=== PATIENT | male | born 1945 | race Caucasian/White ===

== ENCOUNTER 2022-08-05 11:23 | Day surgery (SDC) | payer OTHER ==
[~2022-08-05] VITALS: Ht 175.3 cm; Wt 79.4 kg
[~2022-08-05 11:23] MED LIST: ACET325 PO; ASPI325 PO; ASPI81CH PO; B Complete1 EACH PO; B-1100 MG PO; BISA5EC PO; CARV6.25 PO; CHOL10002; CIPR500 PO; CLOP75 PO; DOCU100 PO; EZET10 PO; FENO145 PO; FISH1000 PO; FOLI1 PO; GAVILAX17 GM PO; HYDCHL25 PO; LIDO700A20 TOP; LISI20 PO; METF500 PO; METR500 PO; MICROZIDE12.5 MG; Miacalcin I200 IU/ML; NIAC500ER PO; NITR.4SL SL; Norco 7.5-3251 EACH PO; ONDA4ODT PO; OXYACE7.5T PO; Oyster Shell C500 MG PO; SPIRIVA
[2022-08-05] MEDS ORDERED: FISH OIL 1,2001 EAC7 (12:09)
== END 2022-08-05 13:40 | disposition home or self-care (01) ==
LOC: ORSCSDS 11:23
PROVIDERS: Surgery
PROC: 0DBN8ZX Excision of Sigmoid Colon, Via Natural or Artificial Opening Endoscopic, Diagnostic (ICD-10-PCS; principal; 2022-08-05 13:00)
DX: Z12.11 Encounter for screening for malignant neoplasm of colon (principal); Z86.010 Personal history of colon polyps; K52.9 Noninfective gastroenteritis and colitis, unspecified; K63.5 Polyp of colon; J44.9 Chronic obstructive pulmonary disease, unspecified; I25.10 Atherosclerotic heart disease of native coronary artery without angina pectoris; E11.9 Type 2 diabetes mellitus without complications; I71.40 Abdominal aortic aneurysm, without rupture, unspecified; E78.5 Hyperlipidemia, unspecified; I10 Essential (primary) hypertension; Z87.891 Personal history of nicotine dependence; Z79.82 Long term (current) use of aspirin
CPT/HCPCS: 82947; 88305; J2704; J7120

== ENCOUNTER 2022-12-29 19:06 | Emergency (ER) | payer OTHER ==
[~2022-12-29] VITALS: Ht 175.3 cm; Wt 81.2 kg
[~2022-12-29 19:06] MED LIST changes: +FISH OIL 1,2001 EAC7
[2022-12-29 20:28] LABS: BASOPHILS ABSOLUTE AUTO 0.02 K/mm3 (0.00-0.23); BASOPHILS PERCENT AUTO 0 % (0-2); EOSINOPHILS ABSOLUTE AUTO 0.04 K/mm3 (0.00-0.68); EOSINOPHILS PERCENT AUTO 1 % (0-6); Hemoglobin 12.8 g/dL (13.5-17.5); IMMATURE GRAN ABSOLUTE AUTO 0.02 K/mm3 (0.00-0.10); IMMATURE GRAN PERCENT AUTO 0 % (0-1); LYMPHOCYTES PERCENT AUTO 21 % (21-46); MONOCYTES ABSOLUTE AUTO 0.59 K/mm3 (0.16-1.47); MONOCYTES PERCENT AUTO 13 % (4-13); Mean Corpuscular HGB 36.2 pg (26.0-34.0); Mean Corpuscular HGB Conc 35.6 g/dL (31.5-36.5); Mean Corpuscular Volume 102 fL (80-100); Mean Platelet Volume 8.8 fL (9.1-12.4); NEUTROPHILS ABSOLUTE AUTO 3.06 K/mm3 (1.96-9.15); NEUTROPHILS PERCENT AUTO 65 % (41-73); Platelet Count 138 K/mm3 (150-400); RDW Coefficient Variation 12.6 % (11.7-14.2); Red Blood Cell Count 3.54 M/mm3 (4.30-5.90); White Blood Cell Count 4.73 K/mm3 (4.00-11.30)
[2022-12-29 21:02] LABS: Albumin, Blood 3.5 g/dL (3.4-5.0); Albumin/Globulin Ratio 1.1 (0.8-1.8); Bilirubin, Total 0.5 mg/dL (0.1-1.0); Bun/Creatinine Ratio 17.8 (12.0-20.0); Calcium, Blood 8.9 mg/dL (8.5-10.1); Creatinine, Blood 1.69 mg/dL (0.60-1.20); Globulin, Blood 3.3 g/dL (2.2-4.0); Potassium, Blood 3.8 mmol/L (3.5-5.5); Total Protein, Blood 6.8 g/dL (6.4-8.2)
[2022-12-29 21:15] VITALS: BP 127/79
[2022-12-29] MEDS ORDERED: EPIPEN0.3 MG/0.3 IM (21:19)
== END 2022-12-29 21:29 | disposition home or self-care (01) ==
LOC: ER 19:06
PROVIDERS: Emergency Medicine
DX: T63.441A Toxic effect of venom of bees, accidental (unintentional), initial encounter (principal); I12.9 Hypertensive chronic kidney disease with stage 1 through stage 4 chronic kidney disease, or unspecified chronic kidney disease; E11.22 Type 2 diabetes mellitus with diabetic chronic kidney disease; N18.9 Chronic kidney disease, unspecified; J44.9 Chronic obstructive pulmonary disease, unspecified; I25.10 Atherosclerotic heart disease of native coronary artery without angina pectoris; Z91.030 Bee allergy status; Z88.5 Allergy status to narcotic agent; Z88.8 Allergy status to other drugs, medicaments and biological substances; Z91.018 Allergy to other foods; Z79.899 Other long term (current) drug therapy; Z79.82 Long term (current) use of aspirin; Z95.5 Presence of coronary angioplasty implant and graft; Z87.891 Personal history of nicotine dependence
CPT/HCPCS: 71045; 80053; 84484; 85025; 93005; 93010; 94640; 94664; 96361; 96374; 96375; 99283-25; A9270; J0171; J1200; J2930; J7030; J7060

== ENCOUNTER 2024-08-15 06:59 | Day surgery (SDC) | payer OTHER ==
[2024-08-15] VITALS (15 sets, daily range): BP systolic 87–138; BP diastolic 55–89
[~2024-08-15] VITALS: Ht 175.3 cm; Wt 78.1 kg
[~2024-08-15 06:59] MED LIST changes: +ALBU90OI INH; +CeFAZolin Sodium 2,000 MG VIAL ONE; +CeFAZolin Sodium 2,000 MG in NS 100 ML IV SCH; +Chlorhexidine Mouth Care 15 ML UDC MT SCH; +EPIPEN0.3 MG/0.3 IM; +FISH OIL 1,0001 EA10 PO; +Lactated Ringer's 1,000 ML IV SCH; +Lisinopril-Hct1 EAC4 PO; +Ropivacaine 0.5% HCl/Pf 123.125 MG,EPINEPHrine HCL 0.25 MG,Ketorolac Tromethamine 15 MG... INFIL SCH; +STIOLTO RESPIMAT4 G1 INH; +THERA-D2000 UNIT PO; +Tranexamic Acid 100 ML IV SCH
[2024-08-15] MEDS ORDERED: OxyCODONE HCL 10 MG TABCR PO SCH (07:35)
[2024-08-15] MEDS ORDERED: propofoL 80 ML IV ONE (07:44)
[2024-08-15] MEDS ORDERED: FentaNYL Citrate 50 MCG/ML 2 ML Injection ONE (07:44)
[2024-08-15] MEDS ORDERED: Lidocaine HCl 2% 20 ML MDV ONE (07:45)
[2024-08-15] MEDS ORDERED: Bupivacaine 0.5% HCl 5 MG/ML 30MLVIAL ONE (07:49)
--- NOTE | 2024-08-15 08:08 | NUR ---
Ambulatory in Day Surgery WITH STEADY GAIT. ABLE TO CHANGE INTO GOWN INDEPENDENTLY. History, Chart, Medications and Allergies reviewed before start of procedure. Pre-Op teaching done. Pt verbalizes understanding. DAUGHTER AT BEDSIDE. DENTURE CUP SENT TO OR FOR HEARING AID REMOVAL ONCE PT IS ASLEEP. ALL OTHER BELONGINGS PLACED UNDER GURN. PT REPORTS LEAVING DENTURES AT HOME.
[2024-08-15] MEDS ORDERED: HYDROmorphone HCl 0.5 MG/0.5 ML SYR IV PRN (08:35)
[2024-08-15] MEDS ORDERED: DiphenhydrAMINE HCL 25 MG Cap PO PRN (08:40)
[2024-08-15] MEDS ORDERED: FLU VACC TS2024-25(6MOS UP)/PF 45 MCG/0.5 ML SYRINGE IM PRN (08:40)
[2024-08-15] MEDS ORDERED: Lactated Ringer's 1,000 ML IV SCH (08:40)
[2024-08-15] MEDS ORDERED: Metoclopramide HCl 5MG / ML 2ML Vial IV PRN (08:40)
[2024-08-15] MEDS ORDERED: Magnesium Hydroxide Conc 10 ML UDC PO PRN (08:45)
[2024-08-15] MEDS ORDERED: OxyCODONE HCL 5 MG TAB PO PRN ×2 (08:45)
[2024-08-15] MEDS ORDERED: Ondansetron HCl 2 MG / ML 2ML Vial IV PRN (08:45)
[2024-08-15] MEDS ORDERED: Bisacodyl 10 MG Supp PR PRN (08:50)
[2024-08-15] MEDS ORDERED: Promethazine HCl 25 MG Tab PO PRN (08:50)
[2024-08-15] MEDS ORDERED: Docusate Sodium 100 MG Cap PO SCH (09:00)
[2024-08-15] MEDS ORDERED: Lisinopril 10 MG Tab PO SCH (09:09)
[2024-08-15] MEDS ORDERED: HydroCHLOROthiazide 25 mg Tab PO SCH (09:09)
[2024-08-15] MEDS ORDERED: Albuterol HFA200 ACT/6.7 GM INH INH PRN (09:10)
[2024-08-15] MEDS ORDERED: Tiotropium Bromide 2.5 MCG/ACT MIST INHAL (10 ACT/4 GM) INH SCH (09:15)
[2024-08-15] MEDS ORDERED: ePHEDrine Sulfate 50 MG/ML 1ML Injection ONE (09:16)
[2024-08-15] MEDS ORDERED: propofoL 20 ML IV ONE (10:09)
[2024-08-15] MEDS ORDERED: Insulin Regular 100 UNIT/ML 10ML Vial SC SCH (11:30)
[2024-08-15] MEDS ORDERED: Ketorolac Tromethamine 15mg Vial IV SCH (12:00)
[2024-08-15] MEDS ORDERED: OXYC5 PO (15:28)
[2024-08-15] MEDS ORDERED: ACET500 PO (15:28)
[2024-08-15] MEDS ORDERED: CeFAZolin Sodium 2,000 MG in NS 100 ML IV SCH (16:00)
--- NOTE | 2024-08-15 16:35 | NUR ---
DISCHARGE PT WORKED w/ THERAPY. PAIN WELL CONTROLLED. TAKING IN FLUIDS & SMALL BITES. VOIDED x 1. DRSGS & POLAR PACK SENT w/ PT. ESCORTED OUT VIA W/C.
[2024-08-16] MEDS ORDERED: Aspirin 81 MG Chew PO SCH (09:00)
== END 2024-08-15 16:35 | disposition home or self-care (01) ==
LOC: ORSCMMR 06:59 → ORD 08:30 → SURS 11:18 → ORSCMMR 16:35
PROVIDERS: Orthopaedic Surgery
PROC: 0SRC0JA Replacement of Right Knee Joint with Synthetic Substitute, Uncemented, Open Approach (ICD-10-PCS; principal; 2024-08-15 08:30)
DX: M17.11 Unilateral primary osteoarthritis, right knee (principal); E11.22 Type 2 diabetes mellitus with diabetic chronic kidney disease; I12.9 Hypertensive chronic kidney disease with stage 1 through stage 4 chronic kidney disease, or unspecified chronic kidney disease; N18.9 Chronic kidney disease, unspecified; Z87.891 Personal history of nicotine dependence; J44.9 Chronic obstructive pulmonary disease, unspecified; E78.5 Hyperlipidemia, unspecified; Z79.899 Other long term (current) drug therapy; Z79.82 Long term (current) use of aspirin
CPT/HCPCS: 73560-RT; 82947; 97110; 97116; 97162; 97530; A9270; C1713; C1776; C1887; J0171; J0690; J0735; J1885; J2704; J2795; J3010; J7120